=== PATIENT | female | born 1965 | race Caucasian/White ===

== ENCOUNTER → 2019-04-25 | Emergency (ER) | payer OTHER ==
[~2019-04-25] VITALS: Ht 172.7 cm; Wt 106.6 kg
[~2019-04-25] MED LIST: SINEMET 25-1001 EACH PO; VENLAFAXINE HCL75 M1
== END | disposition home or self-care (01) ==
LOC: ER 10:49
DX: M25.561 Pain in right knee (principal)